=== PATIENT | female | born 1970 | race Caucasian/White ===

== ENCOUNTER → 2016-05-19 | Outpatient (CLI) | payer BC ==
[~2016-05-19] MED LIST: ASPI81TA2 PO; ATOR10TA PO; ATOR20TA PO; CYCL10TA2 PO; HYDR-971 PO; INSU100C4 SQ; IOHEXOL 180 MG/ML 20ML VIAL. IT ONE; LIDOCAINE 1% Multi-Dose 20 ML VIAL. ID ONE; LISI10TA2 PO; METO1TAB31 PO
--- NOTE | 2016-05-19 16:46 | KCIC ---
PROCEDURE AP and lateral lumbar spine radiographs to include flexion and extension views 05/19/2016 HISTORY Low back pain which radiates down the left leg for 1.5 years. FINDINGS Standing AP and 2 neutral lateral and 2 flexion and an extension lateral digital radiographs of the lumbar spine were obtained. Comparison study is dated 09/12/2015. The alignment of the lumbar vertebrae is within normal limits. Degenerative changes consisting vertebral endplate sclerosis and minimal to mild anterior and posterior vertebral body osteophyte formation are seen throughout the lumbar disc spaces. Disc space narrowing is seen at L4-5 and L5-S1. Degenerative changes are seen involving the facet joints of the mid and lower lumbar spine. No fracture or subluxation of the lumbar vertebrae is seen. The alignment of the lumbar vertebrae is maintained on the flexion and extension radiographs. Atherosclerotic calcification of the abdominal aorta is noted. Since the previous examination there has been no significant interval change. IMPRESSION Degenerative changes are seen throughout the lumbar spine, unchanged. No acute osseous abnormality is seen. Electronically signed by: Saad Alford MD (May 19, 2016 16:45:22)
--- NOTE | 2016-05-19 16:57 | KCIC ---
Attempted lumbar myelogram 05/19/2016 Clinical History: Low back pain which radiates down the left leg for 1.5 years. After the risks and benefits of the procedure were explained to the patient, written informed consent was obtained. The lower back was prepped and draped in sterile fashion. 1 percent lidocaine was used as local anesthetic. Under fluoroscopic guidance, several attempts were made perform a lumbar puncture at the L2-3 and L3-4 levels using a 22 gauge long spinal needle without success. The patient has a very large body habitus and significant degenerative changes within the lumbar spine making a lumbar approach difficult. The patient has a very short thick neck which would make a C1-2 approach difficult as well. After discussing the situation with the patient it was decided to reschedule the procedure next week and re-attempt a lumbar myelogram with a different radiologist. The total fluoroscopic time for this study was 3 minutes 13 seconds. A single digital spot radiograph was obtained. A sterile Band-Aid was placed on the skin puncture site. The patient tolerated the attempted procedure well without immediate complications. The patient will not be charged for this examination. Electronically signed by: Saad Alford MD (May 19, 2016 16:56:00)
== END | disposition home or self-care (01) ==
LOC: KCIC 08:32
PROVIDERS: ATTEND Neurological Surgery
DX: M47.896 Other spondylosis, lumbar region (principal); I70.0 Atherosclerosis of aorta; M48.06 Spinal stenosis, lumbar region; M25.78 Osteophyte, vertebrae
CPT/HCPCS: 72110; 72265

== ENCOUNTER → 2016-05-25 | Outpatient (CLI) | payer BC ==
[~2016-05-25] MED LIST changes: +IOHEXOL 180 MG/ML 10 ML VIAL. IT ONE; -IOHEXOL 180 MG/ML 20ML VIAL. IT ONE
--- NOTE | 2016-05-25 12:15 | KCIC ---
PROCEDURE Lumbar myelogram. HISTORY Low back pain with radiculopathy for 1.5 years TECHNIQUE Patient was informed of the risks to include pain, infection, bleeding, nerve root injury, seizures, allergic reaction. All questions were answered. Patient signed a written consent form for lumbar myelogram.The patient was placed in a prone oblique position on the fluoroscopy table. External skin site of the lower back was prepped and draped in the usual sterile fashion. Betadine was utilized for cleansing solution. 1 percent lidocaine was utilized for local anesthesia at the anticipated site of puncture of the right [id number] space. A guiding needle was advanced into the soft tissues. Through the guiding needle, a 25 gauge pencil point needle was advanced until return of cerebral spinal fluid. Fifteen cc Omnipaque 180 were injected during fluoroscopic visualization. Bowie were removed. There were no immediate complications. Fluoroscopic spot images were acquired to include standing images of the lumbar spine. The patient was transferred to CT suite for CT examination of the lumbar spine. Fluoroscopy time, fluoroscopy images: Eighty seconds, 15 images FINDINGS There is no evidence of myelographic block. 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 There is fairly advanced degenerative disc disease at L4-5 and L5-S1, spondylosis at the same levels. 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 There is fairly advanced degenerative disc disease at L4-5 and L5-S1. Electronically signed by: Jagjit Barahona MD (May 25, 2016 12:14:14)
--- NOTE | 2016-05-25 12:29 | KCIC ---
PROCEDURE CT lumbar spine exam HISTORY Low back pain with radiculopathy, previous surgery 2002, left radiculopathy for about 1.[address] imaging was performed of the lumbar spine after injection for the lumbar myelogram, multiplanar reconstruction images submitted. Exposure: One or more of the following individualized dose reduction techniques were utilized for this exam: 1. Automated exposure control. 2. Adjustment of the mA and/or kV according to patient size. 3. Use of iterative reconstruction technique. COMPARISON September 12, 2015 FINDINGS There is some beam attenuation by soft tissues. Lumbar vertebral body stature is unchanged, multilevel Schmorl's nodes. AP alignment is adequate. There is again fairly advanced degenerative disc disease at L4-5 and L5-S1 at which there is vacuum disc disease. Conus terminates L1-L2. T12-L1: Spinal canal and neural foramina are adequate. L1-2: Spinal canal and neural foramina are adequate. There is again mild to moderate facet degenerative change. L2-3: There is again moderate facet hypertrophic change. Spinal canal and neural foramina remain adequate. L3-4: There is again moderate facet degenerative change. Spinal canal and neural foramina remain adequate. L4-L5: There is again disc osteophyte complex. There is again superimposed density compatible with protrusion/contained extrusion with indentation upon the ventral thecal sac greatest centrally and in the right lateral recess, internal calcification. Overall size is similar, on the order of approximately 1.1 cm transverse by 0.9 cm cc by up to 0.7 centimeters AP. There is again moderate to severe narrowing of the right lateral recess and contact of the descending right L5 nerve root, similar mild to moderate left lateral recess stenosis. There is again moderate bilateral facet hypertrophic change. There is mild neural foramina compromise bilaterally. L5-S1: There is again a defect of the left lamina. There is moderate to severe facet degenerative change. There is again disc osteophyte complex/prominent osteophytes more eccentric to the left lateral recess with contact and mild posterior displacement of the descending left S1 nerve root as seen previously. There is mild to moderate left lateral recess stenosis, central canal and right lateral recess adequate. There is mild narrowing of the left neural foramen as seen previously by disc osteophyte complex and facet hypertrophic change. Right neural foramen is adequate. IMPRESSION 1. Findings are similar comparing with the 2016 exam. There is again right greater than left lateral recess stenosis at L4-5 with impingement descending right L5 nerve root. There is again left lateral recess stenosis at L5-S1 by prominent osteophytes with contact and mild posterior displacement descending left S1 nerve root. 2. There is again advanced degenerative disc disease at L4-5 and L5-S1, spondylosis at the same levels. 3. There is multilevel lumbar facet degenerative change. 4. There is mild neural foramina compromise on the left at L5-S1 and bilaterally at L4-5. Electronically signed by: Jagjit Barahona MD (May 25, 2016 12:27:50)
== END | disposition home or self-care (01) ==
LOC: KCIC 09:22
PROVIDERS: ATTEND Neurological Surgery
DX: M54.16 Radiculopathy, lumbar region (principal); M51.36 Other intervertebral disc degeneration, lumbar region
CPT/HCPCS: 72132; 72265